=== PATIENT | female | born 1990 | race Caucasian/White ===

== ENCOUNTER 2017-09-23 21:24 | Emergency (ER) | payer SELFPAY ==
[~2017-09-23] VITALS: Ht 165.1 cm; Wt 90.9 kg
[~2017-09-23 21:24] MED LIST: ALBU.5I NEB; ALBU6.7H INH; ALBU8I INH; LEVO.125 PO; LEVO100T5 PO; PERC5TAB12 PO; ZOFR8TAB PO
[2017-09-23 21:29] VITALS: BP 150/98; PULSE 97; RESP 16; TEMP 98.4; O2SAT 100
[2017-09-24] LABS: AMORPHOUS SEDIMENT, URINE RARE; BACTERIA, URINE MANY /hpf; BILIRUBIN, URINE NEG (NEG); BLOOD, URINE LARGE (NEG); GLUCOSE,URINE NEG (NEG); KETONE, URINE NEG (NEG); MUCUS URINE MANY /lpf (OCC); NITRITE,URINE NEG (NEG); PH, URINE 7.5 (5.0-8.5); SQUAMOUS EPITHELIAL CELL URINE 9 /hpf (0-5); URINE COLOR YELLOW (YELLW/STRAW); URINE LEUKOCYTE ESTERASE LARGE (NEG)
[2017-09-24] MEDS ORDERED: CIPR-9 PO (00:13)
--- NOTE | 2017-09-24 00:13 | PD ---
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 She says she has felt the pressure for the past few days, but today her boyfriend noticed some tissue present outside of her vagina. She denies fever or chills. She has not had any nausea or vomiting. She does say that she started bleeding today, but it is early for her menstrual period. She stopped control 2 months ago, and has had one regular menstrual cycle since then. She has not taken anything for her symptoms. PFSH Past Medical History Asthma: Yes Cardiovascular Problems: Yes (HTN, high cholesterol) High Cholesterol: Yes Diminished Hearing: No Hypertension: Yes Respiratory: Yes (asthma) Immunizations Current: Yes Thyroid Disease: Yes Tetanus Vaccination: Unknown Influenza Vaccination: No ?: Not LMP: 09/05/2017 : 4 Para: 3 Miscarriage: 1 Tubal Ligation: Yes Past Surgical History Cholecystectomy: Yes Social History Alcohol Use: Yes (Occasionally) Tobacco Use: No Substance Use: No Allergies-Medications (Allergen,Severity, Reaction): Coded Allergies: guaifenesin (Unverified Allergy, Intermediate, dye in med -throat swells, 09/23/17) promethazine (Unverified Allergy, Intermediate, rash, 09/23/17) Reported Meds & Prescriptions Reported Meds & Active Scripts Active Reported Albuterol Neb (Albuterol Sulfate) 2.5 Mg/0.5 Ml Neb 2.5 Mg NEB QID NEB Note: The Albuterol Sulfate Inhalation Solution is concentrated and must be diluted. Read complete instructions carefully before using. Proventil Hfa 6.7 GM Inh (Albuterol Sulfate) 90 Mcg/Act Aer 1 Puff INH Q4H PRN Levothyroxine (Levothyroxine Sodium) 100 Mcg Tab 100 Mcg PO DAILY Review of Systems Except as stated in HPI: all other systems reviewed are Neg General / Constitutional: No: Fever, Chills HENT: No: Headaches, Lightheadedness Cardiovascular: No: Chest Pain or Discomfort Respiratory: No: Shortness of Breath Gastrointestinal: Positive: Abdominal Pain, No: Nausea, Vomiting Genitourinary: Positive: Vaginal Bleeding, No: Dysuria, Flank Pain, Discharge Musculoskeletal: No: Myalgias Skin: No Rash, No Change in Pigmentation Neurologic: No: Weakness, Dizziness Physical Exam Narrative GENERAL: Awake and alert, in no acute distress. SKIN: Focused skin assessment warm/dry. HEAD: Atraumatic. Normocephalic. EYES: Pupils equal and round. No scleral icterus. ENT: Mucous membranes pink and moist. NECK: Trachea midline. No JVD. CARDIOVASCULAR: Regular rate and rhythm. No murmur appreciated. RESPIRATORY: No accessory muscle use. Clear to auscultation. Breath sounds equal bilaterally. GASTROINTESTINAL: Abdomen soft, nondistended. Tender to palpation of the suprapubic area. No rebound or guarding. : Exam performed in the presence of a nurse. No prolapse seen. MUSCULOSKELETAL: No obvious deformities. No clubbing. No cyanosis. No edema. NEUROLOGICAL: Awake and alert. No obvious cranial nerve deficits. Motor grossly within normal limits. Normal speech. PSYCHIATRIC: Appropriate mood and affect; insight and judgment normal. Data Data Last Documented VS Vital Signs Date Time Temp Pulse Resp B/P (MAP) Pulse Ox O2 Delivery O2 Flow Rate FiO2 09/23/17 21:29 98.4 97 16 150/98 (115) 100 Orders Orders Urinalysis - C+S If Indicated (09/23/17 23:16) Ed Urine Pregnancytest Poc (09/23/17 23:16) Urine Culture (09/23/17 23:45) Labs Laboratory Tests Test 09/23/17 23:45 Urine Color YELLOW Urine Turbidity HAZY Urine pH 7.5 Urine Specific [place] 1.028 Urine Protein 30 mg/dL Urine Glucose (UA) NEG mg/dL Urine Ketones NEG mg/dL Urine Occult Blood LARGE Urine Nitrite NEG Urine Bilirubin NEG Urine Urobilinogen 2.0 MG/DL Urine Leukocyte Esterase LARGE Urine RBC /hpf Urine WBC 47 /hpf Urine Squamous Epithelial Cells 9 /hpf Urine Amorphous Sediment RARE Urine Bacteria MANY /hpf Urine Mucus MANY /lpf Microscopic Urinalysis Comment CULTURE INDICATED MDM Medical Decision Making Medical Screen Exam Complete: Yes Emergency Medical Condition: Yes Medical Record Reviewed: Yes Differential Diagnosis UTI versus pyelonephritis versus cervical prolapse Narrative Course Patient is a 27-year-old female who comes in due to concern for uterine prolapse. Exam shows tenderness to the suprapubic area. Urine sent for urinalysis is positive for UTI. There is no evidence of prolapse at this time. She'll be discharged with a prescription for Cipro. Advised to follow-up with gynecology. Advised to return any time for any worsening symptoms. Diagnosis Primary Impression: Urinary tract infection Qualified Codes: N30.00 - Acute cystitis without hematuria Patient Instructions: General Instructions, Urinary Tract Infection in Women ( ED) Additional Instructions: Take all of your antibiotic. Follow-up with gynecology. Return to the ED as needed for any worsening symptoms. Scripts Ciprofloxacin (Cipro) 500 Mg Tab 500 MG PO BID for Infection for 5 Days, #10 TAB 0 Refills Prov: Britney Allen MD 09/24/17 Disposition: 01 DISCHARGE HOME Condition: Stable Britney Allen MD Sep 24, 2017 00:13
== END 2017-09-24 00:36 | disposition home or self-care (01) ==
LOC: NEPD 21:24 → MERGE 21:24 → NEPD 09-24 00:36
DX: N30.00 Acute cystitis without hematuria (principal)
CPT/HCPCS: 81001; 84703; 87086; 99283

== ENCOUNTER 2017-09-27 14:50 | Emergency (ER) | payer SELFPAY ==
[~2017-09-27] VITALS: Ht 165.1 cm; Wt 90.5 kg
[~2017-09-27 14:50] MED LIST changes: +CIPR-9 PO; -PERC5TAB12 PO; -ZOFR8TAB PO
[2017-09-27 14:51] VITALS: BP 155/63; PULSE 94; RESP 14; TEMP 98.4; O2SAT 100
[2017-09-27] MEDS ORDERED: IBUP-1129 PO (15:39)
[2017-09-27] MEDS ORDERED: VENTAER INH (15:39)
[2017-09-27] MEDS ORDERED: LEVO100T5 PO (15:39)
[2017-09-27] MEDS ORDERED: BACT800T5 PO (16:03)
[2017-09-27] MEDS ORDERED: TRAM50TA PO (16:03)
--- NOTE | 2017-09-27 16:10 | PD ---
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 This patient complains of having a vaginal lesion. She's not sure what it is. It leaked some blood and cloudy material earlier today. Denies fever. She did have some pain with it. Duration 2 days. She has an appointment with her commercial credit lead coming up but they couldn't see her on the weekend. PFSH Past Medical History Arthritis: Yes (POSITIVE RA TEST) Asthma: Yes Autoimmune Disease: No Blood Disorders: No Anxiety: No Depression: No Heart Rhythm Problems: Yes (PVC's ESPECIALLY DURING ; PSVT) Chest Pain: Yes Diabetes: No Diminished Hearing: No Gastrointestinal Disorders: No Genitourinary: Yes (Genital Herpes) Hypertension: Yes (WITH AND CHILD) Kidney Stones: Yes Musculoskeletal: No Neurologic: No Psychiatric: No Reproductive: No Immunizations Current: Yes Sickle Cell Disease: No Thyroid Disease: Yes (HYPO) Tetanus Vaccination: > 5 Years ?: Not LMP: 09/23/17 : 4 Para: 2 Miscarriage: 1 : 0 Past Surgical History Oral Surgery: Yes (WISDOM TEETH REMOVAL) Other Surgery: Yes (WISDOM TEETH) Social History Alcohol Use: No Tobacco Use: No Substance Use: No Allergies-Medications (Allergen,Severity, Reaction): Coded Allergies: Lactobacillus acidophilus (Unverified Allergy, Severe, THROAT SWELLS, 05/06) Lactobacillus bulgaricus (Unverified Allergy, Severe, THROAT SWELLS, ) Lactobacillus gasseri (Unverified Allergy, Severe, THROAT SWELLS, 05/06/17) Streptococcus thermophilus (Unverified Allergy, Severe, THROAT SWELLS, ) chu (Unverified Allergy, Severe, THROAT SWELLS, 05/06/17) promethazine (Unverified Allergy, Severe, CONFUSION, 05/06/17) red dye (Unverified Allergy, Severe, 05/06/17) red chu in cough syrup Uncoded Allergies: JALAPENO (Allergy, Mild, THROAT SWELLS, 02/18/15) . Reported Meds & Prescriptions Reported Meds & Active Scripts Active Tramadol (Tramadol HCl) 50 Mg Tab 50 Mg PO Q6H PRN Bactrim DS (Sulfamethoxazole-Trimethoprim) 800-160 Mg Tab 1 Tab PO BID Reported Ventolin Hfa 18 GM Inh (Albuterol Sulfate) 90 Mcg/Act Aer 2 Puff INH Q4-6H PRN Motrin Ib (Ibuprofen) 200 Mg Tablet 800 Mg PO Q6HR PRN Levothyroxine (Levothyroxine Sodium) 100 Mcg Tab 100 Mcg PO DAILY Review of Systems General / Constitutional: No: Fever HENT: No: Headaches Cardiovascular: No: Chest Pain or Discomfort Respiratory: No: Cough Physical Exam Narrative GASTROINTESTINAL: Abdomen soft, non-tender, nondistended. Positive bowel sounds. No hepato-splenomegaly, or palpable masses. No guarding. SKIN: Focused skin assessment reveals no rash or ulcers. Skin is warm and dry. Palpation shows no induration or nodules. : Patient has a midline nodular structure protruding from the vaginal floor. It's covered with pink healthy-looking mucosa. It does not appear to be a Bartholin's cyst. It doesn't seem fluctuant. There is no active drainage. Data Data Last Documented VS Vital Signs Date Time Temp Pulse Resp B/P (MAP) Pulse Ox O2 Delivery O2 Flow Rate FiO2 09/27/17 14:51 98.4 94 14 155/63 (93) 100 MDM Medical Decision Making Medical Screen Exam Complete: Yes Emergency Medical Condition: Yes Medical Record Reviewed: Yes Differential Diagnosis Cyst, polyp, abscess Narrative Course I have reviewed the patient's electronic medical record. Not sure exactly what the structure represents. I don't feel it's in the patient's best interest to try to incise and drain it at this point. It is not fluctuant. I did write some antibiotics and some medication for pain to use if needed. She should have her commercial credit lead evaluate this and determine further treatment. Diagnosis Primary Impression: Vaginal lesion Additional Instructions: The patient was advised to follow up with their physician and return if they worsen. The patient was warned about potential sedation for the medications they will receive on prescription. Med/Other Pt SpecificInfo: Prescription(s) given Scripts Tramadol (Tramadol) 50 Mg Tab 50 MG PO Q6H Y for PAIN, #15 TAB 0 Refills Prov: Kocisko,Dallin J. MD 09/27/17 Sulfamethoxazole-Trimethoprim (Bactrim DS) 800-160 Mg Tab 1 TAB PO BID for Infection, #14 TAB 0 Refills Prov: Dallin Ann MD 09/27/17 Disposition: 01 DISCHARGE HOME Condition: Stable Dallin Ann MD Sep 27, 2017 16:10
== END 2017-09-27 16:21 | disposition home or self-care (01) ==
LOC: NEPD 14:50
DX: L98.9 Disorder of the skin and subcutaneous tissue, unspecified (principal); M06.9 Rheumatoid arthritis, unspecified; J45.909 Unspecified asthma, uncomplicated; E03.9 Hypothyroidism, unspecified; Z87.442 Personal history of urinary calculi
CPT/HCPCS: 99284